=== PATIENT | female | born 1990 | race Caucasian/White ===

== ENCOUNTER 2016-10-05 06:24 | Observation (INO) | payer OTHER ==
[2016-10-05] VITALS (8 sets, daily range): BP systolic 102–143; BP diastolic 48–89
[~2016-10-05] VITALS: Ht 177.8 cm; Wt 139.7 kg
[~2016-10-05 06:24] MED LIST: PERCOCET1 TA4 PO; SUDAFED30 MG PO; ZOFRAN4 MG PO
--- NOTE | 2016-10-05 07:59 | ED ORDER SUMMARY ---
..... Patient: ORLANDO LARSON OrderSheet [facility] VisitID: [id number] [place] [address] 26y, F Registration Date/Time: 10/05/2016 ORDER SHEET Weight: 120.2 kg (stated) Allergies: Latex GENERAL ORDERS: CBC w Diff Urgent (06:10/05/2016 RCollier R.N. per protocol) (Ack 6:43 LMuller) (7:24 LWhalen R.N.) UA-Culture if indicated Urgent (06:10/05/2016 RCollier R.N. per protocol) (Ack 6:43 LMuller) (7:24 LWhalen R.N.) Urine Urgent (06:10/05/2016 RCollier R.N. per protocol) (Ack 6:43 LMuller) (7:24 LWhalen R.N.) CMP Urgent (06:10/05/2016 RCollier R.N. per protocol) (Ack 6:43 LMuller) (7:24 LWhalen R.N.) Amylase Urgent (06:10/05/2016 RCollier R.N. per protocol) (Ack 6:43 LMuller) (7:24 LWhalen R.N.) Lipase Urgent (06:10/05/2016 RCollier R.N. per protocol) (Ack 6:43 LMuller) (7:24 LWhalen R.N.) US Abdomen Limited (Yes) Urgent (07:02 10/05/2016 Wilfred AGUIRRE) (Ack 7:09 LMuller) (10:13 Minoo) NPO (07:03 10/05/2016 Wilfred AGUIRRE) (7:24 LWhalen R.N.) MEDICATION ORDERS: IV FLUIDS: IV Saline Lock (06:41 10/05/2016 RCollier R.N. per protocol) (Ack 6:42 RCollier R.N.) IV NS : initial bolus 500 mL (1000 mL/hr), then 125 mL/hr for 4h (NOW); Urgent (07:10/05/2016 Wilfred AGUIRRE) (7:22 LWhalen R.N.) Dilaudid IV 0.5 mg (NOW) (07:03 10/05/2016 Wilfred AGUIRRE) (7:23 Soledad Rosales.N.) Zofran IV 4 mg (NOW) (07:03 10/05/2016 Wilfred AGUIRRE) (7:23 LWkevin R.N.) Dilaudid IV 0.5 mg (NOW) (07:33 10/05/2016 Soledad R.N. verbal order read back to Wilfred AGUIRRE) (7:36 LWkevin R.N.) Cefotetan IV 1 gm (NOW) (08:21 10/05/2016 Wilfred AGUIRRE) (8:41 LWkevin R.N.) ORDER SHEET NOTES: [Electronically signed by Jere Sun MD (21:12 10/05/2016)] [Electronically signed by Kori Brown R.N. (19:12 10/08/2016)] [Electronically locked/signed by Kori Brown R.N. (19:12 10/08/2016)]
--- NOTE | 2016-10-05 07:59 | ED ORDER SUMMARY ---
..... Patient: ORLANDO LARSON OrderSheet [facility] VisitID: [id number] [place] [address] 26y, F Registration Date/Time: 10/05/2016 ORDER SHEET Weight: 120.2 kg (stated) Allergies: Latex GENERAL ORDERS: CBC w Diff Urgent (06:10/05/2016 RCollier R.N. per protocol) (Ack 6:43 LMuller) (7:24 LWhalen R.N.) UA-Culture if indicated Urgent (06:10/05/2016 RCollier R.N. per protocol) (Ack 6:43 LMuller) (7:24 LWhalen R.N.) Urine Urgent (06:10/05/2016 RCollier R.N. per protocol) (Ack 6:43 LMuller) (7:24 LWhalen R.N.) CMP Urgent (06:10/05/2016 RCollier R.N. per protocol) (Ack 6:43 LMuller) (7:24 LWhalen R.N.) Amylase Urgent (06:10/05/2016 RCollier R.N. per protocol) (Ack 6:43 LMuller) (7:24 LWhalen R.N.) Lipase Urgent (06:10/05/2016 RCollier R.N. per protocol) (Ack 6:43 LMuller) (7:24 LWhalen R.N.) US Abdomen Limited (Yes) Urgent (07:02 10/05/2016 Wilfred AGUIRRE) (Ack 7:09 LMuller) (10:13 Minoo) NPO (07:03 10/05/2016 Wilfred AGUIRRE) (7:24 LWhalen R.N.) MEDICATION ORDERS: IV FLUIDS: IV Saline Lock (06:41 10/05/2016 RCollier R.N. per protocol) (Ack 6:42 RCollier R.N.) IV NS : initial bolus 500 mL (1000 mL/hr), then 125 mL/hr for 4h (NOW); Urgent (07:10/05/2016 Wilfred AGUIRRE) (7:22 LWhalen R.N.) Dilaudid IV 0.5 mg (NOW) (07:03 10/05/2016 Wilfred AGUIRRE) (7:23 Soledad Rosales.N.) Zofran IV 4 mg (NOW) (07:03 10/05/2016 Wilfred AGUIRRE) (7:23 LWkevin R.N.) Dilaudid IV 0.5 mg (NOW) (07:33 10/05/2016 Soledad R.N. verbal order read back to Wilfred AGUIRRE) (7:36 LWkevin R.N.) Cefotetan IV 1 gm (NOW) (08:21 10/05/2016 Wilfred AGUIRRE) (8:41 LWkevin R.N.) ORDER SHEET NOTES: [Electronically signed by Jere Sun MD (21:12 10/05/2016)] [Electronically signed by Kori Brown R.N. (19:12 10/08/2016)] [Electronically locked/signed by Kori Brown R.N. (19:12 10/08/2016)]
--- NOTE | 2016-10-05 07:59 | ED NURSING NOTES ---
Clinical Report - Nurses [facility] [address] [place] [address] 10/05/2016 6:24 Patient: ORLANDO LARSON TRIAGE Triage time 06:30. Acuity: LEVEL 3. Chief Complaint: ABDOMINAL PAIN and (upper right quadrant pain). Alert. --06:38 Wilma Hdz R.N. 06:30 10/05/16. BP: 136/90. HR: 89. RR: 17. O2 saturation: 99% on room air. Temp: 98.2 F (oral). Albert-Jaeger pain scale: 4/10. --06:38 Wilma Hdz R.N. Weight: 120.2 kg stated. Height/Length: 70 inches Per Patient. BMI: 38. --06:36 Wilma Hdz R.N. Medications Gabapentin Oral (Capsule 400 mg) 1 capsule, daily. --06:33 Wilma Hdz R.N. Allergies Penicillins. Probable --06:34 Wilma Hdz R.N. Latex. --06:34 Wilma Hdz R.N. History Arrived by private vehicle. Historian: patient. Accompanied by family. Primary physician (Vonda). This started today. Onset. (at about 0200). 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 PAST MEDICAL HX: Immunizations: up-to-date. Last normal menstrual period now. SOCIAL HX: Smoker- current status unknown. Occasional alcohol use. History of drug use: marijuana. NUTRITIONAL RISK ASSESSMENT: The nutritional risk assessment revealed no deficiencies. FUNCTIONAL ASSESSMENT: Functional assessment: no impairments noted. --06:38 Wilma Hdz R.N. PROBLEMS: Back Pain. Lumbar Radiculopathy. Uterine Fibroid. --06:35 Wilma Hdz R.N. ADDITIONAL SURGERIES: Left foot surgery for ruptured achilles . Right arm surgery to repair break . --06:35 Wilma Hdz R.N. Interventions ID band on patient. To treatment room. --06:38 Wilma Hdz R.N. PHYSICAL ASSESSMENT Ambulatory to room. GENERAL / NEURO / PSYCH: Alert. Oriented X 4. Appears in pain. HEENT: Mucous membranes are pink. RESPIRATORY: Respirations not labored. CVS: Capillary refill less than 2 seconds. SKIN: Skin is warm and dry. --06:38 Wilma Hdz R.N. GI / : Abdominal tenderness in the epigastric area. Guarding present. --06:39 Wilma Hdz R.N. NURSING PROGRESS NOTES Head of bed elevated. Two patient identifiers checked. Call light placed in reach. Side rails up x 1. Bed placed in lowest position. Brakes of bed on. --06:39 Wilma Hdz R.N. 06:39 10/05/2016 Site #1 started via IV in the left antecubital space with an 18g angiocath, with aseptic technique and good blood return; one attempt. Blood drawn: rainbow set. Labeled in the presence of the patient and sent to the lab. Saline lock flushed with 10 mL saline (started by [employer] RN). --06:39 Wilma Hdz R.N. Patient ready for evaluation- chart flagged. --06:39 Wilma Hdz R.N. Patient ID band checked for patient name and birthdate: patient confirmed. Instructions provided to collect clean catch urine and patient verbalized understanding. Clean catch urine collected with return of yellow-colored urine; sample sent to lab. Specimen labeled in the presence of the patient. --06:39 Wilma Hdz R.N. Care transferred and report given (to NANCI Sheikh). --07:06 Wilma Hdz R.N. 07:17 10/05/2016 Started bag #1 1000 mL IV Fluids IV NS (Saline); at 1000 mL/hr over 1 hour(s) via site #1 via IV pump. Allergies verified and confirmed 5 rights. IV patency established. IV site checked: no pain, redness, or swelling. IV flushed thoroughly pre- and post-medication administration. --07:22 Kori Brown R.N. 07:18 10/05/2016 Zofran (Ondansetron HCl) IVP 4 mg given over 1 minute(s) via site #1. Allergies verified and confirmed 5 rights. IV patency established. IV site checked: no pain, redness, or swelling. IV flushed thoroughly pre- and post-medication administration. --07:23 Kori Brown R.N. 07:23 10/05/2016 Dilaudid (HYDROmorphone HCl PF) IVP 0.5 mg given over 2 minute(s) via site #1. Allergies verified, confirmed 5 rights and sedative warning given to the patient and patient's family. IV patency established. IV site checked: no pain, redness, or swelling. IV flushed thoroughly pre- and post-medication administration. --07:23 Kori Brown R.N. 07:31 10/05/2016 Dilaudid (HYDROmorphone HCl PF) IVP 0.5 mg given over 2 minute(s) via site #1. Allergies verified, confirmed 5 rights and sedative warning given to the patient and patient's family. IV patency established. IV site checked: no pain, redness, or swelling. IV flushed thoroughly pre- and post-medication administration. --07:36 Kori Brown R.N. 08:11. ( Dr Ross paged). --08:18 Robyn Auguste 08:41 10/05/2016 Started 1 gm of CEFOTETAN IVPB in bag #1 50 mL; at 100 mL/hr over 1 hour(s) via site #1 via IV pump. Allergies verified and confirmed 5 rights. IV patency established. IV site checked: no pain, redness, or swelling. IV flushed thoroughly pre- and post-medication administration. --08:41 Kori Brown R.N. 09:30 10/05/16. BP: 119/57. HR: 88. RR: 18. O2 saturation: 100%. 08:00 10/05/16. BP: 89/53. HR: 86. RR: 18. O2 saturation: 98%. 07:05 10/05/16. BP: 107/79. HR: 82. RR: 18. O2 saturation: 97%. Pain level now: 01/22. --10:22 Kori Brown R.N. ( Report given to bladimir CHRISTINE. All questions answered.). --10:28 Kori Brown R.N. Locked/Released at 10/08/2016 19:12 by Kori Brown R.N.
--- NOTE | 2016-10-05 07:59 | ED CLINICAL REPORT ---
Clinical Report - Physicians/Mid Levels [facility] [address] [place] [address] 10/05/2016 6:24 Patient: ORLANDO LARSON Time Seen: 06:41. Arrived- By private vehicle. Historian- patient. HISTORY OF PRESENT ILLNESS Chief Complaint: ABDOMINAL PAIN. It is described as stabbing and strong pressure and it is described as located in the right upper quadrant and radiating to the upper back. At its maximum, severity described as 6 / 10. When seen in the E.D., severity described as 6 / 10. Modifying factors- worsened by deep breaths. This started today at about 2 AM and is still present. It was abrupt in onset and has been constant. The patient has had nausea and loss of appetite. No vomiting. She has had diarrhea (for 1 weeks ago). Similar symptoms previously: None. REVIEW OF SYSTEMS Last normal menstrual period now. All systems otherwise negative, except as recorded above. PAST HISTORY PCP - Vonda. Problems: Back Pain. Fever. Lumbar Radiculopathy. Vaginal Bleeding. Uterine Fibroid. Additional Surgeries: Left foot surgery for ruptured achilles . Right arm surgery to repair break . Medications: Percocet Oral. Gabapentin Oral (Capsule 400 mg) 1 capsule, daily. Allergies: Latex. SOCIAL HISTORY Former smoker (quit 1 week ago). Occasional alcohol use. History of occasional drug use: marijuana. Is a local resident. She lives with parent(s). FAMILY HISTORY Heart disease in first-degree relative (father). Mother was hospitalized 1 month ago for altered mental status. ADDITIONAL NOTES The nursing notes have been reviewed. PHYSICAL EXAM Vital Signs: 10/05/2016 06:30 BP: 136/90. HR: 89. RR: 17. O2 saturation: 99%. Temp: 98.2 F. Albert-Jaeger pain scale: 4/10. Have been reviewed. Appearance: Alert. Eyes: Pupils equal, round and reactive to light. ENT: Pharynx normal. Neck: Normal inspection. Neck supple. CVS: Normal heart rate and rhythm. Respiratory: No respiratory distress. Breath sounds normal. Abdomen: Soft. Moderate tenderness in the right upper quadrant. No organomegaly. No mass. Obese. Back: Normal inspection. No CVA tenderness. Skin: Skin warm and dry. Normal skin color. Normal skin turgor. Extremities: Extremities exhibit normal ROM. No lower extremity edema. LABS, X-RAYS, AND EKG Abdominal Sonogram: Gallstones are present. Gallbladder wall thickening is present (3mm). (positive Duncan's sign and hyperemia around the gallbladder). No pericholecystic fluid, dilated common duct or common duct stones. Laboratory Tests: UA-Culture if indicated: (GENESIS: 10/05/2016 06:31) ( [facility] 10/05/2016 06:53) Final results Test Result Flag Units (Reference) URINE COLOR YELLOW URINE APPEARANCE CLEAR URINE GLUCOSE NEGATIVE (NEGATIVE) URINE BILIRUBIN NEGATIVE (NEGATIVE) URINE KETONE NEGATIVE (NEGATIVE) URINE SPECIFIC GRAVITY 1.020 (1.010-1.030) URINE PH 7.0 (5.0-8.0) URINE PROTEIN NEGATIVE (NEGATIVE) URINE UROBILINOGEN 0.2 EU/dL (0.2-1.0) URINE NITRITE NEGATIVE (NEGATIVE) URINE BLOOD 1+ (NEGATIVE) URINE LEUK ESTERASE NEGATIVE (NEGATIVE) URINE RBC 0-1 rbc/hpf (0-1) URINE WBC 0-1 wbc/hpf (0-1) URINE EPITHELIAL CELLS 0-1 EPI/hpf (0-5) URINE BACTERIA NONE SEEN (NONE SEEN) URINE COMMENT CULT NOT INDICATED URINE CULTURES ARE SET-UP BASED ON THE FOLLOWING CRITERIA:POSITIVE NITRITEPOSITIVE LEUKOCYTE ESTERASEGREATER THAN 10 WHITE BLOOD CELLSMODERATE (2+) OR GREATER BACTERIA Urine: (GENESIS: 10/05/2016 06:31) ( [facility] 10/05/2016 06:48) Final results Test Result Flag Units (Reference) URINE NEGATIVE CBC w Diff: (GENESIS: 10/05/2016 06:39) ( [facility] 10/05/2016 06:47) Final results Test Result Flag Units (Reference) WHITE BLOOD COUNT 8.9 K/uL (4.5-11.5) RED BLOOD COUNT 4.53 M/uL (4.00-5.20) HEMOGLOBIN 13.1 gm/dL (12.0-16.0) HEMATOCRIT 39.9 % (36.0-46.0) MEAN CELL VOLUME 88 fL (80-100) MEAN CORPUSCULAR HGB 29 pg (26-34) MEAN CORPUSCULAR HGB CONC 33 g/dL (31-37) RED CELL DISTRIBUTION WIDTH 13.6 % (11.6-14.8) PLATELET COUNT 228 K/uL (150-400) NEUTROPHIL % 55.0 % (50-75) LYMPH % 34.9 % (25-40) MONO % 6.1 % (3-14) EOSINOPHIL % 3.4 % (0-4) BASOPHIL % 0.6 % (0-2) CMP: (GENESIS: 10/05/2016 06:39) ( MsgRcvd 10/05/2016 07:03) Final results Test Result Flag Units (Reference) GLUCOSE 116 H mg/dL (70-110) BUN 14 mg/dL (7-18) CREATININE 0.8 mg/dL (0.6-1.3) Estimated GFR >60 mL/min Estimated GFR- >60 mL/min Note: Persistent reduction over 3 months in eGFR<60 mL/min/1.73 m2 defines CKD. Patients with eGFR values>=60 mL/min/1.73 m2 may also have CKD if evidence ofpersistent proteinuria. Additional information may be foundat www.kidney.org. SODIUM 142 mmol/L (136-145) POTASSIUM 4.4 mmol/L (3.5-5.1) CHLORIDE 105 mmol/L (98-107) CARBON DIOXIDE 23 mmol/L (21-32) CALCIUM 9.2 mg/dL (8.5-10.1) TOTAL PROTEIN 7.7 g/dL (6.4-8.2) ALBUMIN 3.7 g/dL (3.3-5.0) BILIRUBIN, TOTAL 0.2 mg/dL (0.0-1.0) ALKALINE PHOSPHATASE 83 U/L (46-116) AST (SGOT) 14 L U/L (15-37) ALT (SGPT) 30 U/L (12-78) LIPASE 152 U/L (73-393) AMYLASE 47 U/L (25-115) . PROGRESS AND PROCEDURES Consult obtained from surgery. Vandana. Case discussed. Phone consult only. Will see patient in the hospital. Patient/family counseled. Old medical records reviewed. Disposition orders written (in [facility] and [facility]of [facility] Symptomatic cholelithiasis/cholecystitis orders). Disposition: Admitted. CLINICAL IMPRESSION Acute cholecystitis with cholelithiasis. (Electronically signed by Jere Sun MD 10/05/2016 21:12)
--- NOTE | 2016-10-05 07:59 | ED CLINICAL REPORT ---
Clinical Report - Physicians/Mid Levels [facility] [address] [place] [address] 10/05/2016 6:24 Patient: ORLANDO LARSON Time Seen: 06:41. Arrived- By private vehicle. Historian- patient. HISTORY OF PRESENT ILLNESS Chief Complaint: ABDOMINAL PAIN. It is described as stabbing and strong pressure and it is described as located in the right upper quadrant and radiating to the upper back. At its maximum, severity described as 6 / 10. When seen in the E.D., severity described as 6 / 10. Modifying factors- worsened by deep breaths. This started today at about 2 AM and is still present. It was abrupt in onset and has been constant. The patient has had nausea and loss of appetite. No vomiting. She has had diarrhea (for 1 weeks ago). Similar symptoms previously: None. REVIEW OF SYSTEMS Last normal menstrual period now. All systems otherwise negative, except as recorded above. PAST HISTORY PCP - Vonda. Problems: Back Pain. Fever. Lumbar Radiculopathy. Vaginal Bleeding. Uterine Fibroid. Additional Surgeries: Left foot surgery for ruptured achilles . Right arm surgery to repair break . Medications: Percocet Oral. Gabapentin Oral (Capsule 400 mg) 1 capsule, daily. Allergies: Latex. SOCIAL HISTORY Former smoker (quit 1 week ago). Occasional alcohol use. History of occasional drug use: marijuana. Is a local resident. She lives with parent(s). FAMILY HISTORY Heart disease in first-degree relative (father). Mother was hospitalized 1 month ago for altered mental status. ADDITIONAL NOTES The nursing notes have been reviewed. PHYSICAL EXAM Vital Signs: 10/05/2016 06:30 BP: 136/90. HR: 89. RR: 17. O2 saturation: 99%. Temp: 98.2 F. Albert-Jaeger pain scale: 4/10. Have been reviewed. Appearance: Alert. Eyes: Pupils equal, round and reactive to light. ENT: Pharynx normal. Neck: Normal inspection. Neck supple. CVS: Normal heart rate and rhythm. Respiratory: No respiratory distress. Breath sounds normal. Abdomen: Soft. Moderate tenderness in the right upper quadrant. No organomegaly. No mass. Obese. Back: Normal inspection. No CVA tenderness. Skin: Skin warm and dry. Normal skin color. Normal skin turgor. Extremities: Extremities exhibit normal ROM. No lower extremity edema. LABS, X-RAYS, AND EKG Abdominal Sonogram: Gallstones are present. Gallbladder wall thickening is present (3mm). (positive Duncan's sign and hyperemia around the gallbladder). No pericholecystic fluid, dilated common duct or common duct stones. Laboratory Tests: UA-Culture if indicated: (GENESIS: 10/05/2016 06:31) ( [facility] 10/05/2016 06:53) Final results Test Result Flag Units (Reference) URINE COLOR YELLOW URINE APPEARANCE CLEAR URINE GLUCOSE NEGATIVE (NEGATIVE) URINE BILIRUBIN NEGATIVE (NEGATIVE) URINE KETONE NEGATIVE (NEGATIVE) URINE SPECIFIC GRAVITY 1.020 (1.010-1.030) URINE PH 7.0 (5.0-8.0) URINE PROTEIN NEGATIVE (NEGATIVE) URINE UROBILINOGEN 0.2 EU/dL (0.2-1.0) URINE NITRITE NEGATIVE (NEGATIVE) URINE BLOOD 1+ (NEGATIVE) URINE LEUK ESTERASE NEGATIVE (NEGATIVE) URINE RBC 0-1 rbc/hpf (0-1) URINE WBC 0-1 wbc/hpf (0-1) URINE EPITHELIAL CELLS 0-1 EPI/hpf (0-5) URINE BACTERIA NONE SEEN (NONE SEEN) URINE COMMENT CULT NOT INDICATED URINE CULTURES ARE SET-UP BASED ON THE FOLLOWING CRITERIA:POSITIVE NITRITEPOSITIVE LEUKOCYTE ESTERASEGREATER THAN 10 WHITE BLOOD CELLSMODERATE (2+) OR GREATER BACTERIA Urine: (GENESIS: 10/05/2016 06:31) ( [facility] 10/05/2016 06:48) Final results Test Result Flag Units (Reference) URINE NEGATIVE CBC w Diff: (GENESIS: 10/05/2016 06:39) ( [facility] 10/05/2016 06:47) Final results Test Result Flag Units (Reference) WHITE BLOOD COUNT 8.9 K/uL (4.5-11.5) RED BLOOD COUNT 4.53 M/uL (4.00-5.20) HEMOGLOBIN 13.1 gm/dL (12.0-16.0) HEMATOCRIT 39.9 % (36.0-46.0) MEAN CELL VOLUME 88 fL (80-100) MEAN CORPUSCULAR HGB 29 pg (26-34) MEAN CORPUSCULAR HGB CONC 33 g/dL (31-37) RED CELL DISTRIBUTION WIDTH 13.6 % (11.6-14.8) PLATELET COUNT 228 K/uL (150-400) NEUTROPHIL % 55.0 % (50-75) LYMPH % 34.9 % (25-40) MONO % 6.1 % (3-14) EOSINOPHIL % 3.4 % (0-4) BASOPHIL % 0.6 % (0-2) CMP: (GENESIS: 10/05/2016 06:39) ( MsgRcvd 10/05/2016 07:03) Final results Test Result Flag Units (Reference) GLUCOSE 116 H mg/dL (70-110) BUN 14 mg/dL (7-18) CREATININE 0.8 mg/dL (0.6-1.3) Estimated GFR >60 mL/min Estimated GFR- >60 mL/min Note: Persistent reduction over 3 months in eGFR<60 mL/min/1.73 m2 defines CKD. Patients with eGFR values>=60 mL/min/1.73 m2 may also have CKD if evidence ofpersistent proteinuria. Additional information may be foundat www.kidney.org. SODIUM 142 mmol/L (136-145) POTASSIUM 4.4 mmol/L (3.5-5.1) CHLORIDE 105 mmol/L (98-107) CARBON DIOXIDE 23 mmol/L (21-32) CALCIUM 9.2 mg/dL (8.5-10.1) TOTAL PROTEIN 7.7 g/dL (6.4-8.2) ALBUMIN 3.7 g/dL (3.3-5.0) BILIRUBIN, TOTAL 0.2 mg/dL (0.0-1.0) ALKALINE PHOSPHATASE 83 U/L (46-116) AST (SGOT) 14 L U/L (15-37) ALT (SGPT) 30 U/L (12-78) LIPASE 152 U/L (73-393) AMYLASE 47 U/L (25-115) . PROGRESS AND PROCEDURES Consult obtained from surgery. Vandana. Case discussed. Phone consult only. Will see patient in the hospital. Patient/family counseled. Old medical records reviewed. Disposition orders written (in [facility] and [facility] Symptomatic cholelithiasis/cholecystitis orders). Disposition: Admitted. CLINICAL IMPRESSION Acute cholecystitis with cholelithiasis. (Electronically signed by Jere Sun MD 10/05/2016 21:12)
--- NOTE | 2016-10-05 08:35 | DIAGNOSTIC IMAGING REPORT ---
PROCEDURE: US ABDOMEN ULTRASOUND-LIMITED INDICATION: RUQ PAIN TECHNIQUE: Garces scale and color Doppler sonographic images of the abdomen were obtained. COMPARISON: None. FINDINGS: Multiple gallstones including a 2.4 cm gallstone lodged in the neck of the gallbladder. Gallbladder wall measures 3 mm with equivocal hyperemia. Positive Duncan's sign. Normal CBD measures 5.5 mm. Liver measures 17.8 cm and has a normal appearance. Pancreas is normal as visualized. IVC is patent. Normal hepatopetal flow in the portal vein. Normal right kidney measures 11.9 cm. IMPRESSION: 1. Cholelithiasis including a 2.4 cm gallstone lodged in the neck of the gallbladder with findings suggestive of acute cholecystitis 2. Results discussed with Dr. Sun
[2016-10-05] MEDS ORDERED: GABAPENTIN400 MG PO (14:24)
[2016-10-05] MEDS ORDERED: PERCOCET1 TA1 PO (14:25)
[2016-10-05] MEDS ORDERED: NORCO1 TA1 PO (19:40)
--- NOTE | 2016-10-05 19:42 | Provider's Discharge Care Plan ---
Problem, Goal, Plan Problem List 1. Cholecystitis
--- NOTE | 2016-10-05 19:42 | Provider's Discharge Care Plan ---
Problem, Goal, Plan Problem List 1. Cholecystitis
--- NOTE | 2016-10-05 19:59 | DIAGNOSTIC IMAGING REPORT ---
PROCEDURE: XR INTRAOPERATIVE LAP HAYDEN INDICATION: LAP HAYDEN WITH IOC TECHNIQUE: Intraoperative fluoroscopy provided for Dr. Ross performing an intraoperative cholangiogram following cholecystectomy. Total fluoroscopy time 7 seconds Cumulative dose 5.7 mGy. COMPARISON: None. FINDINGS: AP intraoperative fluoroscopic spot image of the right upper quadrant of the abdomen demonstrate cannulation of the cystic duct stump and opacification of the intrahepatic and extrahepatic biliary tree. There are no filling defects. There is normal passage of contrast into the duodenum. IMPRESSION: 1. Negative intraoperative cholangiogram.
--- NOTE | 2016-10-05 20:16 | CONSULTATION REPORT ---
DATE OF CONSULTATION: 10/05/2016 CHIEF COMPLAINT: 1. Right upper quadrant abdominal pain HISTORY OF PRESENT ILLNESS: The patient is a 26-year-old woman who awoke this morning at 0200 hours with severe right upper quadrant abdominal pain. This caused her to present to the emergency room. She describes no pains exactly like this before. She had a bout of diarrhea about 2 weeks ago associated with vomiting, at which time she thought she had a stomach flu associated with a fever. She did not have the specific localized pain at the time. The patient has no history of jaundice or pancreatitis. MEDICAL/SURGICAL HISTORY: Past medical history: Back pain, lumbar radiculopathy, sleep disturbance, vaginal bleeding, uterine fibroids. Past surgery: Left Achilles tendon repair x2, and ORIF of a right wrist fracture. MEDICATIONS: 1. Oral Percocet. 2. Gabapentin 400 mg daily. ALLERGIES: 1. LATEX. 2. SHE REPORTS HER FAMILY MEMBERS HAVE ALLERGIES TO PENICILLIN, THOUGH SHE HERSELF NEVER HAD THIS MEDICATION. SOCIAL HISTORY: The patient quit smoking about a week ago. She denies alcohol use. 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 FAMILY HISTORY: Her father had gallbladder disease, as well as some other medical problems including heart disease. REVIEW OF SYSTEMS: A multipoint review of systems was obtained at this time. The patient denies head, eyes, ears and nose problems. She reports no sinus problems, head and neck infections, cough, sore throat, hemoptysis, palpitations, chest pain, current diarrhea or hematochezia, unexpected weight loss. She reports no neurologic symptoms. No dysuria or problems with urination. PHYSICAL EXAMINATION: VITAL SIGNS: On admission, blood pressure is 136/90, heart rate of 89, respirations 17, O2 saturation 99%, temperature 98.2. GENERAL: The patient is alert and cooperative. Her mental status is normal. She is oriented to time and place, and converses appropriately. HEENT: Her ears, nose demonstrated no gross external lesions. Eyes were equal. There is no icterus. Pupils are equal and reactive to light. Her external nose and ears are normal. NECK: Supple and without tenderness. There are no bruits in the neck. CHEST: Clear to auscultation. There are no rales or rhonchi. HEART: Regular, without murmur or gallop. ABDOMEN: Reveals localized tenderness and guarding in the right upper quadrant, right subcostal region. There is no obvious ascites or jaundice. There is no palpable hepatosplenomegaly. Bowel sounds are present. EXTREMITIES: Symmetric. She appears to move without restriction. There are several tattoos noted. LAB/IMAGING: Laboratory tests: The ultrasound demonstrates gallstones and a thickened gallbladder wall with a positive ultrasonic Duncan sign. Her lipase and amylase are normal. White count is 8.9. Electrolytes are normal. Bilirubin is 0.2, glucose 116, BUN/creatinine 14 and 0.8. IMPRESSION: 1. Acute cholecystitis. PLAN: I have recommended the patient undergo laparoscopic cholecystectomy, cholangiography. I talked to her about the nature of this operation, which she is familiar from her father's experience. I talked about alternatives such as antibiotic treatments and delayed surgery. I talked to her about risks such as infections, bleeding, scars , pain, damage to local structures, possible open surgery, possible common bile duct stones and postoperative pancreatitis and others. The patient would like to proceed with surgery as described to her.
--- NOTE | 2016-10-05 20:22 | OPERATIVE REPORT ---
DATE OF SURGERY: 10/05/2016 SURGEON: Ricardo Ross MD PREOPERATIVE DIAGNOSIS: 1. Acute cholelithiasis with acute cholecystitis POSTOPERATIVE DIAGNOSIS: 1. Acute cholelithiasis with acute cholecystitis PROCEDURE PERFORMED: 1. Laparoscopic cholecystectomy, cholangiography ANESTHESIA: General. COMPLICATIONS: No intraoperative complications were encountered. INDICATIONS: The patient is a 26-year-old woman presenting with unremitting right upper quadrant abdominal pain and cholelithiasis. SURGICAL TECHNIQUE: The patient was taken to the operating room, where a general anesthetic was administered and patient prepped and draped in the usual sterile fashion. An orogastric tube, IV antibiotics, and sequential compression devices were in place. A local anesthetic of 0.5% Marcaine with epinephrine was used at each incision site and instilled in the abdomen at the conclusion of procedure. An infraumbilical incision was made and a Veress needle used to insufflate the abdominal cavity. A 10 mm trocar was inserted, and visualization was obtained. Three additional trocars were placed in the usual location. The gallbladder was elevated; however, exposure to the cystic duct was poor due to the patient's central obesity. One additional trocar was placed with a self-forming retractor, which was used to hold down the transverse colon and the omentum. This allowed exposure to the cystic duct. The cystic duct was isolated circumferentially and a clip placed at neck of the gallbladder. A fluoroscopic cholangiogram was carried out, which revealed free flow into the duodenum and no filling defects. The cystic duct and artery were doubly clipped and divided and the gallbladder stripped from the gallbladder fossa using electrocautery. It was pulled to the upper midline trocar site where it was partially empty. It proved to be too difficult to empty without possible spillage of stones; therefore, it was placed in a specimen bag, pulled back up, morcellated and extracted. There was no spillage of stones or bile in the abdominal cavity. Irrigation and suction were used. The gallbladder bed was found to be hemostatic. Gas was evacuated, and the skin sites closed with interrupted subcuticular 4-0 Vicryl suture and Steri-Strips. Dressings were placed and the patient left in stable condition.
[2016-10-06 02:50] VITALS: BP 127/53
--- NOTE | 2016-10-08 19:12 | ED DISCHARGE INSTRUCTIONS ---
Patient: ORLANDO LARSON General Instructions [facility] VisitID: [id number] [address] [place] [address] 26y, F Registration Date/Time: 10/05/2016 Acute cholecystitis with cholelithiasis. (Electronically signed by Jere Sun MD 10/05/2016 21:12)
--- NOTE | 2016-10-08 19:12 | ED MED RECONCILIATION SUMMARY ---
Patient: ORLANDO LARSON Medication Reconciliation Report [facility] VisitID: [id number] [address] [place] [address] 26y, F Registration Date/Time: 10/05/2016 Weight: 120.2 kg Height/Length: 70 in. BMI: 38.0 ALLERGIES: Latex The patient's Home Medications are listed below: THE FOLLOWING MEDICATIONS NEED TO BE RECONCILED: Gabapentin Oral (400 mg) 1 capsule, daily Percocet Oral The source(s) of the original Home Medication information: Not obtained. The following Medications were given to the patient in the Emergency Department: IV NS IV Fluids bolus 0, then 1000 mL/hr, administered: 10/05/2016 7:17:00 AM Dilaudid [IVP] IVP 0.5 mg, administered: 10/05/2016 7:23:00 AM Zofran [IVP] IVP 4 mg, administered: 10/05/2016 7:18:00 AM Dilaudid [IVP] IVP 0.5 mg, administered: 10/05/2016 7:31:00 AM CEFOTETAN [IVPB] IVPB bolus 0, then 1 gm 100 mL/hr, administered: 10/05/2016 8:41:00 AM The following Medications were prescribed to the patient: None.
--- NOTE | 2016-10-08 19:12 | ED MED RECONCILIATION SUMMARY ---
Patient: ORLANDO LARSON Medication Reconciliation Report [facility] VisitID: [id number] [address] [place] [address] 26y, F Registration Date/Time: 10/05/2016 Weight: 120.2 kg Height/Length: 70 in. BMI: 38.0 ALLERGIES: Latex The patient's Home Medications are listed below: THE FOLLOWING MEDICATIONS NEED TO BE RECONCILED: Gabapentin Oral (400 mg) 1 capsule, daily Percocet Oral The source(s) of the original Home Medication information: Not obtained. The following Medications were given to the patient in the Emergency Department: IV NS IV Fluids bolus 0, then 1000 mL/hr, administered: 10/05/2016 7:17:00 AM Dilaudid [IVP] IVP 0.5 mg, administered: 10/05/2016 7:23:00 AM Zofran [IVP] IVP 4 mg, administered: 10/05/2016 7:18:00 AM Dilaudid [IVP] IVP 0.5 mg, administered: 10/05/2016 7:31:00 AM CEFOTETAN [IVPB] IVPB bolus 0, then 1 gm 100 mL/hr, administered: 10/05/2016 8:41:00 AM The following Medications were prescribed to the patient: None.
--- NOTE | 2016-10-08 19:12 | ED MAR SUMMARY ---
..... Medication Administration Record [facility] [address] [place] [address] Patient: ORLANDO LARSON Visit ID: [id number] 26y, F Weight: 120.2 kg Height/Length: 70 in BMI: 38 ALLERGIES: Latex Start 07:17 10/05/2016 Kori Brown R.N. Medication Administered: IV NS (SALINE), Dose: IV Fluids over 1 hour(s), Rate: 1000 mL/hr, Dispensed: 1000 mL bag, Site: #1 left AC. Medication Ordered: IV NS : initial bolus 500 mL (1000 mL/hr), then 125 mL/hr for 4h (NOW); Urgent. Given 07:18 10/05/2016 Kori Brown R.N. Medication Administered: ZOFRAN [IVP] (ONDANSETRON HCL), Dose: 4 mg IVP over 1 minute(s), Site: #1 left AC. Medication Ordered: Zofran IV 4 mg (NOW). Given 07:23 10/05/2016 Kori Brown R.N. Medication Administered: DILAUDID [IVP] (HYDROMORPHONE HCL PF), Dose: 0.5 mg IVP over 2 minute(s), Site: #1 left AC. Medication Ordered: Dilaudid IV 0.5 mg (NOW). Given 07:31 10/05/2016 Kori Brown R.N. Medication Administered: DILAUDID [IVP] (HYDROMORPHONE HCL PF), Dose: 0.5 mg IVP over 2 minute(s), Site: #1 left AC. Medication Ordered: Dilaudid IV 0.5 mg (NOW). Start 08:41 10/05/2016 Kori Brown R.N. Medication Administered: CEFOTETAN [IVPB], Dose: 1 gm IVPB over 1 hour(s), Rate: 100 mL/hr, Dispensed: 50 mL bag, Site: #1 left AC. Medication Ordered: Cefotetan IV 1 gm (NOW).
--- NOTE | 2016-10-08 19:12 | ED DISCHARGE INSTRUCTIONS ---
Patient: ORLANDO LARSON General Instructions [facility] VisitID: [id number] [address] [place] [address] 26y, F Registration Date/Time: 10/05/2016 Acute cholecystitis with cholelithiasis. (Electronically signed by Jere Sun MD 10/05/2016 21:12)
--- NOTE | 2016-10-08 19:12 | ED MAR SUMMARY ---
..... Medication Administration Record [facility] [address] [place] [address] Patient: ORLANDO LARSON Visit ID: [id number] 26y, F Weight: 120.2 kg Height/Length: 70 in BMI: 38 ALLERGIES: Latex Start 07:17 10/05/2016 Kori Brown R.N. Medication Administered: IV NS (SALINE), Dose: IV Fluids over 1 hour(s), Rate: 1000 mL/hr, Dispensed: 1000 mL bag, Site: #1 left AC. Medication Ordered: IV NS : initial bolus 500 mL (1000 mL/hr), then 125 mL/hr for 4h (NOW); Urgent. Given 07:18 10/05/2016 Kori Brown R.N. Medication Administered: ZOFRAN [IVP] (ONDANSETRON HCL), Dose: 4 mg IVP over 1 minute(s), Site: #1 left AC. Medication Ordered: Zofran IV 4 mg (NOW). Given 07:23 10/05/2016 Kori Brown R.N. Medication Administered: DILAUDID [IVP] (HYDROMORPHONE HCL PF), Dose: 0.5 mg IVP over 2 minute(s), Site: #1 left AC. Medication Ordered: Dilaudid IV 0.5 mg (NOW). Given 07:31 10/05/2016 Kori Brown R.N. Medication Administered: DILAUDID [IVP] (HYDROMORPHONE HCL PF), Dose: 0.5 mg IVP over 2 minute(s), Site: #1 left AC. Medication Ordered: Dilaudid IV 0.5 mg (NOW). Start 08:41 10/05/2016 Kori Brown R.N. Medication Administered: CEFOTETAN [IVPB], Dose: 1 gm IVPB over 1 hour(s), Rate: 100 mL/hr, Dispensed: 50 mL bag, Site: #1 left AC. Medication Ordered: Cefotetan IV 1 gm (NOW).
== END 2016-10-06 04:00 | disposition home or self-care (01) ==
LOC: ED SRH 06:24 → ACUTE2 SRH 08:40 → TRANS SRH 08:40 → ACUTE2 SRH 11:00
PROVIDERS: Surgery; ADMIT Emergency Medicine
PROC: 0FT44ZZ Resection of Gallbladder, Percutaneous Endoscopic Approach (ICD-10-PCS; principal; 2016-10-05 16:45)
PROC: BF101ZZ Fluoroscopy of Bile Ducts using Low Osmolar Contrast (ICD-10-PCS; principal; 2016-10-05 16:45)
DX: K80.00 Calculus of gallbladder with acute cholecystitis without obstruction (principal)
CPT/HCPCS: 29229; 29230; 50002; 60001; 70002; 80102; 80212; 80248; 80852; 82794; 82807; 83338; 83339; 83348; 83432; 83587; 83920; 83937; 83982; 84038; 90004; 90100; 92235; 92530; 93070; 95059

== ENCOUNTER 2017-01-04 19:37 | Emergency (ER) | payer OTHER ==
[~2017-01-04 19:37] MED LIST changes: +GABAPENTIN400 MG PO; +NORCO1 TA1 PO; +PERCOCET1 TA1 PO
--- NOTE | 2017-01-04 21:02 | ED CLINICAL REPORT ---
Clinical Report - Physicians/Mid Levels [facility] [address] [place] [address] 01/04/2017 19:38 Patient: ORLANDO LARSON Time Seen: 19:58 Jan 04 2017. Arrived- By private vehicle. Historian- patient. HISTORY OF PRESENT ILLNESS Chief Complaint: ALLERGIC REACTION. The patient has had a skin rash and itching. This started just prior to arrival. (Patient had tacos with fish prior to arrival, sustained an allergic reaction, with pruritic sensation to her body, scalp, was seen in the urgent care clinic and given IM Solu-Medrol, as well as IM Benadryl, and minimal improvement and was sent to the emergency department. No history of similar reactions. Denies shortness of breath.). REVIEW OF SYSTEMS No eye problems, sore throat, fever, chills or headache. No weakness. All systems otherwise negative, except as recorded above. PAST HISTORY Problems: Cholecystitis. Back Pain. Fever. Lumbar Radiculopathy. Vaginal Bleeding. Uterine Fibroid. Additional Surgeries: Left foot surgery for ruptured achilles . Right arm surgery to repair break . Medications: Excedrin Migraine Oral. Gabapentin Oral. Allergies: Penicillin. SOCIAL HISTORY Smoker- current status unknown. History of drug use: marijuana. No alcohol use. ADDITIONAL NOTES The nursing notes have been reviewed. PHYSICAL EXAM Vital Signs: 01/04/2017 19:42 BP: 142/74. HR: 97. RR: 18. O2 saturation: 100%. Temp: 98.8 F. Pain level now: 0/10. Eyes: Pupils equal, round and reactive to light. ENT: Ears normal. CVS: Normal heart rate and rhythm. Heart sounds normal. Respiratory: No respiratory distress. Breath sounds normal. No prolonged expiration or accessory muscle use. Skin: Skin warm. Small area of erythema with tenderness to the neck. Skin: Urticaria. Skin rash. Neuro: Oriented X 3. No motor deficit. PROGRESS AND PROCEDURES Course of Care: Patient received IV epinephrine in the emergency department, as well as Pepcid as well as IV fluid. Patient with improvement of symptoms, lungs clear. NO signs of angioedema or facial swelling. Patient with improvement, stable. 01/04/2017 21:30 BP: 101/62. HR: 91. RR: 16. O2 saturation: 95%. Pain level now: 0/10. Patient is stable. Patient/family counseled. Disposition: Discharged. Condition: good. CLINICAL IMPRESSION Hives. INSTRUCTIONS Prescription Medications: Medrol Dosepak: take according to package directions. Dispense one (1) dosepak. No refills. Substitution is permissible. OTC Medications: Take Benadryl according to label instructions. Available over the counter. Follow-up: Follow up with your doctor as needed. Understanding of the discharge instructions verbalized by patient. (Electronically signed by Mary Guadarrama P.A.-C 01/04/2017 22:02)
--- NOTE | 2017-01-04 21:02 | ED ORDER SUMMARY ---
..... Patient: ORLANDO LARSON OrderSheet [facility] VisitID: [id number] [address] [place] [address] 26y, F Registration Date/Time: 01/04/2017 ORDER SHEET Weight: 113.3 kg (estimated) Allergies: Penicillin GENERAL ORDERS: MEDICATION ORDERS: IV FLUIDS: Pepcid IV 40 mg/50mL (NOW) (19:48 01/04/2017 EKoroleva P.A.-C) (Ack 19:56 RMarsden R.N.) (20:52 RMarsden R.N.) IV NS : initial bolus 1000 mL (1000 mL/hr), then 1000 mL/hr for X1 (NOW); Chito (19:48 01/04/2017 EKoroleva P.A.-C) (Ack 19:56 RMarsden R.N.) (20:51 RMarsden R.N.) Epinephrine IV 0.1 mg (HIGH ALERT MEDICATION, NOW) (19:48 01/04/2017 EKoroleva P.A.-C) (Ack 19:56 RMarsden R.N.) (20:34 RMarsden R.N.) Zofran IV 8 mg (NOW) (19:48 01/04/2017 EKoroleva P.A.-C) (Ack 19:56 RMarsden R.N.) (20:51 RMarsden R.N.) ORDER SHEET NOTES: [Electronically signed by Arielle Shields R.N. (21:49 01/04/2017)] [Electronically signed by Mary Guadarrama P.A.-C (22:02 01/04/2017)] [Electronically locked/signed by Arielle Shields R.N. (21:49 01/04/2017)]
--- NOTE | 2017-01-04 21:02 | ED NURSING NOTES ---
Clinical Report - Nurses [facility] [address] [place] [place] [address] 01/04/2017 19:38 Patient: ORLANDO LARSON TRIAGE Triage time 07:41. Acuity: LEVEL 3. Chief Complaint: POSSIBLE ALLERGIC REACTION, SKIN RASH and ITCHING. 19:48 01/04/17. Alert. No acute distress. SEPSIS SCREEN: Sepsis Screen. Negative (no infection suspected/documented). JARRET COMA SCORE: Jarret Coma Scale: 15- eyes open spontaneously (4); best verbal response- oriented x 4 (5); best motor response- obeys commands (6). --19:48 Arielle Shields R.N. 19:42 01/04/17. BP: 142/74. HR: 97. RR: 18. O2 saturation: 100%. Temp: 98.8 F. Pain level now: 0/10. --19:48 Arielle Shields R.N. Weight: 113.3 kg estimated. Height/Length: 70 inches Per Patient. BMI: 35.8. --19:47 Arielle Shields R.N. Medications Gabapentin Oral. --19:44 Arielle Shields R.N. Excedrin Migraine Oral. --19:44 Arielle Shields R.N. Allergies Penicillin. --19:44 Arielle Shields R.N. History Arrived by private vehicle. Historian: patient and family. Accompanied by family. Primary physician (Dr Ayon). Onset. ("about an hour ago"). ( Patient states she ate clam dip and tacos earlier today. 45 minutes later she began feeling warm and developing a rash.). ( patient states "I just feel really hot and itchy"). 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 PAST MEDICAL HX: Immunizations: up-to-date. Last normal menstrual period- 12 days ago. Denies current . SOCIAL HX: Heavy tobacco smoker- less than 1 pack per day. History of occasional drug use: marijuana. No alcohol use. FALL RISK ASSESSMENT: Fall risk assessment completed. No fall risk identified. NUTRITIONAL RISK ASSESSMENT: The nutritional risk assessment revealed no deficiencies. FUNCTIONAL ASSESSMENT: Functional assessment: no impairments noted. LEARNING NEEDS ASSESSMENT: The learning needs assessment revealed no barriers. SKIN INTEGRITY ASSESSMENT: Skin integrity risk assessment completed. No skin integrity risk identified. --19:48 Arielle Shields R.N. PROBLEMS: Cholecystitis. Back Pain. Fever. Lumbar Radiculopathy. Vaginal Bleeding. Uterine Fibroid. --19:44 Arielle Shields R.N. ADDITIONAL SURGERIES: Left foot surgery for ruptured achilles . Right arm surgery to repair break . --19:44 Arielle Shields R.N. Interventions ID band on patient. To treatment room. --19:48 Arielle Shields R.N. NURSING PROGRESS NOTES 20:01/04/2017 Site #1 started via IV in the right hand with an 20g angiocath; one attempt. Blood drawn: rainbow set. Saline lock flushed with 10 mL saline. --20:34 Arielle Shields R.N. 20:19 01/04/2017 Epinephrine (EPINEPHrine HCl) IVP 0.1 mg given over 1 minute(s) via site #1. Allergies verified and confirmed 5 rights. IV patency established. IV site checked: no pain, redness, or swelling. IV flushed thoroughly pre- and post-medication administration. IVP given by RN. --20:34 Arielle Shields R.N. 20:22 01/04/2017 Started bag #1 1000 mL IV Fluids IV NS (Saline); bolus of 1000 mL over 1 hour(s) via site #1. Allergies verified and confirmed 5 rights. IV patency established. IV site checked: no pain, redness, or swelling. IV flushed thoroughly pre- and post-medication administration. Completed per protocol. --20:51 Arielle Shields R.N. 20:26 01/04/2017 Zofran (Ondansetron HCl) IVP 8 mg given over 4 minute(s) via site #1. Allergies verified and confirmed 5 rights. IV patency established. IV site checked: no pain, redness, or swelling. IV flushed thoroughly pre- and post-medication administration. IVP given by RN. --20:51 Arielle Shields R.N. 20:30 01/04/2017 Pepcid IVP 40 mg given over 1 hour(s) via site #1. Allergies verified and confirmed 5 rights. IV patency established. IV site checked: no pain, redness, or swelling. IV flushed thoroughly pre- and post-medication administration. IVP given by RN (Given in 2 20mg/50mL bags). --20:52 Arielle Shields R.N. 20:59 01/04/17. BP: 102/52 (large adult cuff) taken on the left arm, while lying. HR: 89. RR: 16. O2 saturation: 97%. Pain level now: 0/10. --21:00 Arielle Shields R.N. 21:00 01/04/2017 Epinephrine IVP Response: no adverse reaction symptoms have improved (Patient states she no longer feels hot or itchy). 01/04/2017 20:59 BP: 102/52. HR: 89. RR: 16. O2 saturation: 97%. Pain level now: 0/10. --21:45 Arielle Shields R.N. 21:00 01/04/2017 IV Fluids IV NS Response: no adverse reaction. 01/04/2017 20:59 BP: 102/52. HR: 89. RR: 16. O2 saturation: 97%. Pain level now: 0/10. --21:45 Arielle Shields R.N. 21:00 01/04/2017 Zofran IVP Response: no adverse reaction. 01/04/2017 20:59 BP: 102/52. HR: 89. RR: 16. O2 saturation: 97%. Pain level now: 0/10. --21:46 Arielle Shields R.N. 21:00 01/04/2017 Pepcid IVP Response: no adverse reaction. 01/04/2017 20:59 BP: 102/52. HR: 89. RR: 16. O2 saturation: 97%. Pain level now: 0/10. --21:47 Arielle Shields R.N. 21:21 01/04/2017 IV Fluids IV NS Discontinued: bag #1 completed upon discharge. Total amount infused: 1000 mL. IV patency established. IV site checked: no pain, redness, or swelling. IV flushed thoroughly. --21:46 Arielle Shields R.N. 21:24 01/04/2017 Site #1 removed upon discharge. Manual pressure and bandaid applied. --21:49 Arielle Shields R.N. 21:30 01/04/2017 Pepcid IVP Response: (Discontinued upon discharge (21:20). 40mg/100mL infused.). --21:48 Arielle Shields R.N. DISPOSITION / DISCHARGE 21:30 01/04/17. BP: 101/62. HR: 91. RR: 16. O2 saturation: 95%. Temp: deferred. Pain level now: 0/10. --21:31 Arielle Shields R.N. 20:30. Departure time: 20:30. No learning barriers present. Discharge instructions provided and reviewed with the patient. Reviewed warnings. Reviewed medication(s). Treatments reviewed. Patient verbalized understanding. Written instructions provided in Bulgarian. The patient was discharged home and accompanied by parent. She left the Emergency Department ambulatory and via private vehicle. Parent driving. --21:43 Arielle Shields R.N. Locked/Released at 01/04/2017 21:49 by Arielle Shields R.N.
--- NOTE | 2017-01-04 21:02 | ED ORDER SUMMARY ---
..... Patient: ORLANDO LARSON OrderSheet VisitID: [id number] [address] [place] [address] 26y, F Registration Date/Time: 01/04/2017 ORDER SHEET Weight: 113.3 kg (estimated) Allergies: Penicillin GENERAL ORDERS: MEDICATION ORDERS: IV FLUIDS: Pepcid IV 40 mg/50mL (NOW) (19:48 01/04/2017 EKoroleva P.A.-C) (Ack 19:56 RMarsden R.N.) (20:52 RMarsden R.N.) IV NS : initial bolus 1000 mL (1000 mL/hr), then 1000 mL/hr for X1 (NOW); Chito (19:48 01/04/2017 EKoroleva P.A.-C) (Ack 19:56 RMarsden R.N.) (20:51 RMarsden R.N.) Epinephrine IV 0.1 mg (HIGH ALERT MEDICATION, NOW) (19:48 01/04/2017 EKoroleva P.A.-C) (Ack 19:56 RMarsden R.N.) (20:34 RMarsden R.N.) Zofran IV 8 mg (NOW) (19:48 01/04/2017 EKoroleva P.A.-C) (Ack 19:56 RMarsden R.N.) (20:51 RMarsden R.N.) ORDER SHEET NOTES: [Electronically signed by Arielle Shields R.N. (21:49 01/04/2017)] [Electronically signed by Mary Guadarrama P.A.-C (22:02 01/04/2017)] [Electronically locked/signed by Arielle Shields R.N. (21:49 01/04/2017)]
--- NOTE | 2017-01-04 21:02 | ED CLINICAL REPORT ---
Clinical Report - Physicians/Mid Levels [facility] [address] [place] [address] 01/04/2017 19:38 Patient: ORLANDO LARSON Time Seen: 19:58 Jan 04 2017. Arrived- By private vehicle. Historian- patient. HISTORY OF PRESENT ILLNESS Chief Complaint: ALLERGIC REACTION. The patient has had a skin rash and itching. This started just prior to arrival. (Patient had tacos with fish prior to arrival, sustained an allergic reaction, with pruritic sensation to her body, scalp, was seen in the urgent care clinic and given IM Solu-Medrol, as well as IM Benadryl, and minimal improvement and was sent to the emergency department. No history of similar reactions. Denies shortness of breath.). REVIEW OF SYSTEMS No eye problems, sore throat, fever, chills or headache. No weakness. All systems otherwise negative, except as recorded above. PAST HISTORY Problems: Cholecystitis. Back Pain. Fever. Lumbar Radiculopathy. Vaginal Bleeding. Uterine Fibroid. Additional Surgeries: Left foot surgery for ruptured achilles . Right arm surgery to repair break . Medications: Excedrin Migraine Oral. Gabapentin Oral. Allergies: Penicillin. SOCIAL HISTORY Smoker- current status unknown. History of drug use: marijuana. No alcohol use. ADDITIONAL NOTES The nursing notes have been reviewed. PHYSICAL EXAM Vital Signs: 01/04/2017 19:42 BP: 142/74. HR: 97. RR: 18. O2 saturation: 100%. Temp: 98.8 F. Pain level now: 0/10. Eyes: Pupils equal, round and reactive to light. ENT: Ears normal. CVS: Normal heart rate and rhythm. Heart sounds normal. Respiratory: No respiratory distress. Breath sounds normal. No prolonged expiration or accessory muscle use. Skin: Skin warm. Small area of erythema with tenderness to the neck. Skin: Urticaria. Skin rash. Neuro: Oriented X 3. No motor deficit. PROGRESS AND PROCEDURES Course of Care: Patient received IV epinephrine in the emergency department, as well as Pepcid as well as IV fluid. Patient with improvement of symptoms, lungs clear. NO signs of angioedema or facial swelling. Patient with improvement, stable. 01/04/2017 21:30 BP: 101/62. HR: 91. RR: 16. O2 saturation: 95%. Pain level now: 0/10. Patient is stable. Patient/family counseled. Disposition: Discharged. Condition: good. CLINICAL IMPRESSION Hives. INSTRUCTIONS Prescription Medications: Medrol Dosepak: take according to package directions. Dispense one (1) dosepak. No refills. Substitution is permissible. OTC Medications: Take Benadryl according to label instructions. Available over the counter. Follow-up: Follow up with your doctor as needed. Understanding of the discharge instructions verbalized by patient. (Electronically signed by Mary Guadarrama P.A.-C 01/04/2017 22:02)
--- NOTE | 2017-01-04 22:03 | ED MAR SUMMARY ---
..... Medication Administration Record [facility] [address] [place] [address] Patient: ORLANDO LARSON Visit ID: [id number] 26y, F Weight: 113.3 kg Height/Length: 70 in BMI: 35.8 ALLERGIES: Penicillin Given 20:19 01/04/2017 Arielle Shields R.N. Medication Administered: EPINEPHRINE [IVP] (EPINEPHRINE HCL), Dose: 0.1 mg IVP over 1 minute(s), Site: #1 right hand. Medication Ordered: Epinephrine IV 0.1 mg (HIGH ALERT MEDICATION, NOW). Start 20:22 01/04/2017 Arielle Shields R.N., Stop 21:01/04/2017 Arielle Shields R.N. Medication Administered: IV NS (SALINE), Dose: IV Fluids, Bolus: 1000 mL over 1 hour(s), Dispensed: 1000 mL bag, Site: #1 right hand. Medication Ordered: IV NS : initial bolus 1000 mL (1000 mL/hr), then 1000 mL/hr for X1 (NOW); Chito. Given 20:01/04/2017 Arielle Shields R.N. Medication Administered: ZOFRAN [IVP] (ONDANSETRON HCL), Dose: 8 mg IVP over 4 minute(s), Site: #1 right hand. Medication Ordered: Zofran IV 8 mg (NOW). Given 20:30 01/04/2017 Arielle Shields R.N. Medication Administered: PEPCID [IVP], Dose: 40 mg IVP over 1 hour(s), Site: #1 right hand. Medication Ordered: Pepcid IV 40 mg/50mL (NOW).
--- NOTE | 2017-01-04 22:03 | ED MED RECONCILIATION SUMMARY ---
Patient: ORLANDO LARSON Medication Reconciliation Report [facility] VisitID: [id number] [address] [place] [address] 26y, F Registration Date/Time: 01/04/2017 Weight: 113.3 kg Height/Length: 70 in. BMI: 35.8 ALLERGIES: Penicillin The patient's Home Medications are listed below: THE FOLLOWING MEDICATIONS NEED TO BE RECONCILED: Excedrin Migraine Oral Gabapentin Oral The source(s) of the original Home Medication information: Not obtained. The following Medications were given to the patient in the Emergency Department: Epinephrine [IVP] IVP 0.1 mg, administered: 01/04/2017 8:19:00 PM IV NS IV Fluids bolus 1000 mL over 1 hour(s), administered: 01/04/2017 8:22:00 PM Zofran [IVP] IVP 8 mg, administered: 01/04/2017 8:26:00 PM Pepcid [IVP] IVP 40 mg, administered: 01/04/2017 8:30:00 PM The following Medications were prescribed to the patient: Take Benadryl according to label instructions. Available over the counter. -- Mary Guadarrama, P.A.-C Medrol Dosepak: take according to package directions. Dispense one (1) dosepak. No refills. Substitution is permissible. -- Mary Guadarrama, P.A.-C
--- NOTE | 2017-01-04 22:03 | ED DISCHARGE INSTRUCTIONS ---
Patient: ORLANDO LARSON General Instructions [facility] VisitID: [id number] [address] [place] [address] 26y, F Registration Date/Time: 01/04/2017 Hives. INSTRUCTIONS Prescription Medications: Medrol Dosepak: take according to package directions. Dispense one (1) dosepak. No refills. Substitution is permissible. OTC Medications: Take Benadryl according to label instructions. Available over the counter. Follow-up: Follow up with your doctor as needed. Understanding of the discharge instructions verbalized by patient. ADDITIONAL INFORMATION Food Allergy Some persons are sensitive to certain foods. Avoiding these foods is the best treatment. Symptoms of food allergy may begin within minutes up to two hours after eating. Symptoms cause nausea, vomiting, diarrhea or stomach cramps, itchy rash (hives), swelling of the eyes, lips, face or tongue, wheezing, difficulty breathing or swallowing, throat tightness, dizziness or fainting. This kind of allergy can be life-threatening, but in mild-moderate cases symptoms resolve within 6 to 24 hours. Persons with certain health conditions, such as asthma and eczema, are prone to food allergies. Foods that commonly cause an allergic reaction include milk, eggs, peanuts, tree nuts, fish or shellfish, and wheat. But be aware that any food can cause a reaction. Treatment for a severe allergic reaction (anaphylaxis) is epinephrine. A person with a severe food allergy should carry this medication for self-injection. This is available by prescription. Brands include EpiPen, Adrenaclick, and Twinject. Home Care: If symptoms were moderate to severe, rest at home for the next 24 hours. Avoid tobacco and alcohol consumption. These may worsensymptoms. If you know what foods caused your reaction today, avoid them in the future. The next reaction is likely to be worse. Let your family members, friends and personal physician know about your food allergy. Learn how to read food labels so you can check for the substance that you reacted to. If the product does not have a label, it is best to avoid it. When in restaurants, ask about ingredients. If your reaction was severe, obtain a medical alert bracelet or necklace noting your allergy. If epinephrine is prescribed, carry it at all times. Learn how to use the device. If you begin to feel the symptoms of another reaction, use the epinephrine to inject yourself right away, and call 911. Dont wait until symptoms become severe. Oral Benadryl (diphenhydramine) is an antihistamine available at drug and grocery stores. Unless a prescription antihistamine was given, Benadryl may be used to reduce itching if large areas of the skin are involved. Use lower doses during the daytime and higher doses at bedtime since the drug may make you sleepy. [NOTE: Do not use Benadryl if you have glaucoma or if you are a man with trouble urinating due to an enlarged prostate.] Follow Up with your doctor or as advised if you are not improving over the next 2 to 3 days. If you do not know what caused this reaction, skin tests and blood tests, or an elimination diet may be helpful. You may locate an engineering test specialist in your area by contacting: [employer] www.aaaai.org [employer] www.acaai.org Get Prompt Medical Attention if any of the following occur: Worsening of your symptoms New or worse swelling in the face, eyelids, lips, mouth, throat or tongue Trouble swallowing or breathing Dizziness, weakness or fainting Fever of 100.4F (38C) or higher, or as directed by your healthcare provider Severe constant lower right abdominal pain Persistent vomiting (unable to keep liquids down) or constant diarrhea Blood or mucus in the stool You have been given the following additional information: Food Allergy (Electronically signed by Mary Guadarrama P.A.-C 01/04/2017 22:02)
--- NOTE | 2017-01-04 22:03 | ED MED RECONCILIATION SUMMARY ---
Patient: ORLANDO LARSON Medication Reconciliation Report [facility] VisitID: [id number] [address] [place] [address] 26y, F Registration Date/Time: 01/04/2017 Weight: 113.3 kg Height/Length: 70 in. BMI: 35.8 ALLERGIES: Penicillin The patient's Home Medications are listed below: THE FOLLOWING MEDICATIONS NEED TO BE RECONCILED: Excedrin Migraine Oral Gabapentin Oral The source(s) of the original Home Medication information: Not obtained. The following Medications were given to the patient in the Emergency Department: Epinephrine [IVP] IVP 0.1 mg, administered: 01/04/2017 8:19:00 PM IV NS IV Fluids bolus 1000 mL over 1 hour(s), administered: 01/04/2017 8:22:00 PM Zofran [IVP] IVP 8 mg, administered: 01/04/2017 8:26:00 PM Pepcid [IVP] IVP 40 mg, administered: 01/04/2017 8:30:00 PM The following Medications were prescribed to the patient: Take Benadryl according to label instructions. Available over the counter. -- Mary Guadarrama, P.A.-C Medrol Dosepak: take according to package directions. Dispense one (1) dosepak. No refills. Substitution is permissible. -- aMry Guadarrama, P.A.-C
--- NOTE | 2017-01-04 22:03 | ED MAR SUMMARY ---
..... Medication Administration Record [facility] [address] [place] [address] Patient: ORLANDO LARSON Visit ID: [id number] 26y, F Weight: 113.3 kg Height/Length: 70 in BMI: 35.8 ALLERGIES: Penicillin Given 20:19 01/04/2017 Arielle Shields R.N. Medication Administered: EPINEPHRINE [IVP] (EPINEPHRINE HCL), Dose: 0.1 mg IVP over 1 minute(s), Site: #1 right hand. Medication Ordered: Epinephrine IV 0.1 mg (HIGH ALERT MEDICATION, NOW). Start 20:22 01/04/2017 Arielle Shields R.N., Stop 21:01/04/2017 Arielle Shields R.N. Medication Administered: IV NS (SALINE), Dose: IV Fluids, Bolus: 1000 mL over 1 hour(s), Dispensed: 1000 mL bag, Site: #1 right hand. Medication Ordered: IV NS : initial bolus 1000 mL (1000 mL/hr), then 1000 mL/hr for X1 (NOW); Chito. Given 20:01/04/2017 Arielle Shields R.N. Medication Administered: ZOFRAN [IVP] (ONDANSETRON HCL), Dose: 8 mg IVP over 4 minute(s), Site: #1 right hand. Medication Ordered: Zofran IV 8 mg (NOW). Given 20:30 01/04/2017 Arielle Shields R.N. Medication Administered: PEPCID [IVP], Dose: 40 mg IVP over 1 hour(s), Site: #1 right hand. Medication Ordered: Pepcid IV 40 mg/50mL (NOW).
== END 2017-01-04 21:30 | disposition home or self-care (01) ==
LOC: ED SRH 19:37
DX: L50.9 Urticaria, unspecified (principal); Z79.899 Other long term (current) drug therapy; Z79.1 Long term (current) use of non-steroidal anti-inflammatories (NSAID); Z88.0 Allergy status to penicillin